=== PATIENT | female | born 1955 | race Caucasian/White ===

== ENCOUNTER → 2021-10-10 08:17 | Outpatient (BNVA) | payer OTHER, SELFPAY | PROVIDERS: PCP Internal Medicine; Visit Provider Psychiatry & Neurology Neurology | DX: R56.9 Unspecified convulsions (principal) | CPT/HCPCS: 99202 ==

== ENCOUNTER 2021-11-06 12:47 | Outpatient (REF) | payer OTHER, SELFPAY ==
--- NOTE | 2021-11-06 12:54 | EEG_ITS ---
This is a 16-channel EEG with an EKG lead. The patient is reported awake during the tracing. Background EEG rhythm is about 10 hertz, 5 to 30 microvolt posteriorly, and lower amplitude fast anteriorly. The patient transitioned in and out of drowsiness. Some lead and muscle artifacts are noted. Photic stimulation does not produce any significant driving. Hyperventilation is not performed. Cardiac lead does not reveal any significant abnormality. No sharp wave spikes or paroxysmal tendencies noted. IMPRESSION: No significant abnormality noted on this EEG. MD TANGELA Reynolds/CHRISSIE / [id number]
== END 2021-11-06 12:48 | disposition home or self-care (01) ==
LOC: HO.NEURO 12:47
PROVIDERS: PCP Internal Medicine; Visit Provider Psychiatry & Neurology Neurology
DX: R56.9 Unspecified convulsions (principal)
CPT/HCPCS: 95816

== ENCOUNTER → 2021-12-17 13:48 | Outpatient (BNVA) | payer OTHER, SELFPAY | PROVIDERS: PCP Internal Medicine; Visit Provider Psychiatry & Neurology Neurology | DX: R56.9 Unspecified convulsions (principal); G47.33 Obstructive sleep apnea (adult) (pediatric) | CPT/HCPCS: 99212 ==

== ENCOUNTER → 2022-03-18 14:23 | Outpatient (BNVA) | payer OTHER, SELFPAY | PROVIDERS: PCP Internal Medicine; Visit Provider Psychiatry & Neurology Neurology | DX: G47.33 Obstructive sleep apnea (adult) (pediatric) (principal); R56.9 Unspecified convulsions; G25.81 Restless legs syndrome | CPT/HCPCS: 99212 ==

== ENCOUNTER 2023-03-17 14:22 | Outpatient (AMB) | payer OTHER, SELFPAY ==
[2023-03-17 14:34] VITALS: BP 136/72; PULSE 114; O2SAT 95; BMI 37.5
--- NOTE | 2023-03-17 14:34 | A.OFFVIS_ITS ---
Intake Vital Signs 03/17/23 14:34 Height 5 ft 6 in Weight 232 lb 8 oz BMI 37.5 BP 136/72 Blood Pressure Location Lt brachial Position Sitting Pulse 114 H Pulse Source Pulse Oximeter Pulse Oximetry (%) 95 Oxygen Delivery Method Room Air Intake Visit Reasons: 1yr f/u/Lvm Intake Note: Pt presents to the office today for a 1 year follow up for sleep apnea. Allergies amoxicillin Allergy (Verified 03/17/23 14:34) Unknown clavulanic acid Allergy (Verified 03/17/23 14:34) Unknown doxycycline Allergy (Verified 03/17/23 14:34) Unknown minocycline Allergy (Verified 03/17/23 14:34) Rash HPI HPI Comments History of Present Illness Details 67 y/o male patient presents for follow up of seizure and AZUCENA. Pt reports he has not have any seizure since 2017. In 2017 he had multiple seizures ( GTC) related to high blood glucose >500 and HgA 1C over 11. He is on insulin pump now, and does daily exercise, and his BS manages well. Pt is compliant with CPAP, sleeps well about 6 hrs. He feels rested, daytime tiredness has resolved. He gets supplies regularly. Magnesium 250 mg once a day, and it helps for legs muscle cramping. The CPAP compliance and therapy response (12/19/22-03/16/23) reviewed. He is on APAP [id number]. The usage days 88% and the average usage hours 5 hrs. The max pressure was 8 and AHI was 0.9/hr. [facility] Medical History Restless legs syndrome (RLS) Obstructive sleep apnea of adult Seizure Emphysema lung Hyperlipidemia HTN (hypertension) Diabetes Surgical History History of esophagogastroduodenoscopy (EGD) S/P repair of hydrocele History of hernia repair Hx of colonoscopy Family History Mother Tobacco use Father CAD (coronary artery disease) FH: CVA (cerebrovascular accident) Stroke Sister DM (diabetes mellitus) Daughter DM (diabetes mellitus) Social History Household Members: Spouse Household Members Other:: Alcohol intake: current Alcohol intake frequency: a few times a week Patient Tobacco Use Status: Former Tobacco user Review of Systems Const All systems reviewed & are unremarkable except as noted in HPI and below Physical Exam Vital Signs: Last Vital Signs Pulse 114 H 03/17/23 14:34 BP 136/72 03/17/23 14:34 Pulse Ox 95 03/17/23 14:34 Oxygen Delivery Method Room Air 03/17/23 14:34 BMI result Body Mass Index 37.5 Const General: cooperative, healthy appearing and comfortable Nutritional Appearance: average body habitus Orientation/consciousness: patient oriented x3 Limitations: no limitations HEENT Head: Yes normal to inspection and Yes normocephalic Eyes Pupils: Equal, round and reactive pupils present Neck Neck: Yes normal visual inspection and Yes full ROM Neuro General: patient oriented x3, gait normal, tone normal, moves all extremities, Normal light touch and pain sensation, no focal motor deficits and CN's II-XI intact bilaterally Cranial nerves: Yes CN's II-XII intact bilaterally, Yes Facial sensation intact/muscles of mastication intact, Yes Equal, round and reactive pupils present, Yes Bilaterally intact EOM present, Yes Nystagmus not present, Yes Normal facial strength present and Yes Midline tongue present Cognition (Neuro): normal cognition Gait exam (Neuro): Normal gait present Motor exam (neuro): 5/5 motor strength present throughout Assessment & Plan Assessment & Plan (1) Seizure: Comment: likely metabolic - Code(s): R56.9 - Unspecified convulsions (2) Obstructive sleep apnea of adult: Code(s): G47.33 - Obstructive sleep apnea (adult) (pediatric) (3) Restless legs syndrome (RLS): Code(s): G25.81 - Restless legs syndrome Plan Continue CPAP 6-16 cm of water as patient experiences good clinical effects. Continue to take magnesium 400 mg qHS for leg cramping. Coding Level of Care Code Est Pt Level 3 (63025) Diagnoses Seizure R56.9 Obstructive sleep apnea of adult G47.33 Restless legs syndrome (RLS) G25.81
== END 2023-03-17 14:57 | disposition home or self-care (01) ==
PROVIDERS: Visit Provider Nurse Practitioner Family
DX: R56.9 Unspecified convulsions (principal); G47.33 Obstructive sleep apnea (adult) (pediatric); G25.81 Restless legs syndrome
CPT/HCPCS: 99213

== ENCOUNTER → 2023-03-17 14:22 | Outpatient (BNVA) | payer OTHER, SELFPAY | PROVIDERS: Visit Provider Nurse Practitioner Family ==

== ENCOUNTER 2024-03-16 13:54 | Outpatient (AMB) | payer OTHER, SELFPAY ==
--- NOTE | 2024-03-16 13:58 | A.OFFVIS_ITS ---
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 he reports a new symptom - mild rest tremors intermittently in his right fingers. Mild postural tremors. Pt reports he has not have any seizure since 2017. In 2017 he had multiple seizures ( GTC) related to high blood glucose >500 and HgA 1C over 11. He is on insulin pump now, and does daily exercise, and his BS manages well. Pt is compliant with CPAP, sleeps well about 6 hrs. He feels rested, daytime tiredness has resolved. He gets supplies regularly. Magnesium 250 mg once a day, and it helps for legs muscle cramping. [facility] Medical History (Updated 03/16/24 @ 14:16 by Sabine Santos MD) Tremors of nervous system Restless legs syndrome (RLS) Obstructive sleep apnea of adult Seizure Emphysema lung Hyperlipidemia HTN (hypertension) Diabetes Surgical History History of esophagogastroduodenoscopy (EGD) S/P repair of hydrocele History of hernia repair Hx of colonoscopy Family History Mother Tobacco use Father CAD (coronary artery disease) FH: CVA (cerebrovascular accident) Stroke Sister DM (diabetes mellitus) Daughter DM (diabetes mellitus) Social History Household Members: Spouse Household Members Other:: Alcohol intake: current Alcohol intake frequency: a few times a week Patient Tobacco Use Status: Former Tobacco user Physical Exam Vital Signs: Last Vital Signs Pulse 92 03/16/24 13:59 BP 128/76 11/27/24 13:59 Pulse Ox 95 03/16/24 13:59 Oxygen Delivery Method Room Air 03/16/24 13:59 BMI result Body Mass Index 40.4 Const General: cooperative, healthy appearing and comfortable Nutritional Appearance: average body habitus Orientation/consciousness: patient oriented x3 Limitations: no limitations HEENT Head: Yes normal to inspection and Yes normocephalic Eyes Pupils: Equal, round and reactive pupils present Neck Neck: Yes normal visual inspection and Yes full ROM Neuro Other: Mild decreased arm swing on the Right normal voice, facial expression and blink General: patient oriented x3, gait normal, tone normal, moves all extremities, Normal light touch and pain sensation, no focal motor deficits and CN's II-XI intact bilaterally Cranial nerves: Yes CN's II-XII intact bilaterally, Yes Facial sensation intact/muscles of mastication intact, Yes Equal, round and reactive pupils present, Yes Bilaterally intact EOM present, Yes Nystagmus not present, Yes Normal facial strength present and Yes Midline tongue present Cognition (Neuro): normal cognition Gait exam (Neuro): Normal gait present Motor exam (neuro): 5/5 motor strength present throughout Assessment & Plan Assessment & Plan (1) Seizure: Comment: likely metabolic - Code(s): R56.9 - Unspecified convulsions Category: Medical (2) Obstructive sleep apnea of adult: Code(s): G47.33 - Obstructive sleep apnea (adult) (pediatric) Category: Medical (3) Restless legs syndrome (RLS): Code(s): G25.81 - Restless legs syndrome Category: Medical (4) Tremors of nervous system: Comment: intremittent mild Right Hand rest tremors. Code(s): R25.1 - Tremor, unspecified Category: Medical Plan Continue CPAP 6-16 cm of water as patient experiences good clinical effects. Continue to take magnesium 400 mg qHS for leg cramping. Coding Level of Care Code Est Pt Level 4 (38107) Complex EM visit Add On G2211 Diagnoses Seizure R56.9 Obstructive sleep apnea of adult G47.33 Restless legs syndrome (RLS) G25.81 Tremors of nervous system R25.1
[2024-03-16 13:59] VITALS: BP 128/76; PULSE 92; O2SAT 95; BMI 40.4
== END 2024-03-16 14:19 | disposition home or self-care (01) ==
PROVIDERS: PCP Internal Medicine; Visit Provider Psychiatry & Neurology Neurology
DX: R56.9 Unspecified convulsions (principal); G47.33 Obstructive sleep apnea (adult) (pediatric); G25.81 Restless legs syndrome
CPT/HCPCS: 99214; G2211

== ENCOUNTER → 2024-03-16 13:54 | Outpatient (BNVA) | payer OTHER, SELFPAY | PROVIDERS: PCP Internal Medicine; Visit Provider Psychiatry & Neurology Neurology ==

== ENCOUNTER 2024-09-30 12:51 | Outpatient (AMB) | payer OTHER, SELFPAY ==
--- OUTSIDE RECORDS SUMMARY | 2024-09-30 13:16 | XMS_ITS | Encounter Summary ---
Author Organization [facility] Address [address] [place] [address] Care Team Providers Care Hair Dresser Name Role Phone Claudy Collins MD Primary Care Provider [phone] Encounter Details Date Type Department Care Team (Late st Contact Info) Description 03/30/2024 Nurse Triage Adult Medicine [address] [phone] Claudy Collins MD [address] [place] [id number] Social History Tobacco Use Types Packs/Day Years Used Date Smoking Tobacco: Former Cigarettes Q uit: 04/20/2019 Smokeless Tobacco: Never Alcohol Use Standard Drinks/Week Comments Yes 0 (1 standard drink = 0.6 oz pur e alcohol) Sex and Gender Information Value Date Recorded Sex Assigned at Not on file Legal Sex Male 12:41 PM EDT Gender Identity Not on file Sexual Orientation Not on file documented as of this encounter Plan of Treatment Upcoming Encounters Date Type Department Care Team (Late st Contact Info) Description 10/03/2024 4:00 PM EDT Office Visit [place]gy [place] [address] [facility] [address] [place] [phone] Kena Caballero NP [address] [facility] [address] [place] [address] 10/25/2024 3:30 PM EDT Clinical Support Lung Screening Program - [place] [address] [facility] [address] [place] [address] 10/25/2024 4:00 PM EDT Appointment [facility] CT Scan [address] [place] [phone] 11/03/2024 4:30 PM EDT Office Visit Endocrinology [facility] [place] [address] [place] [address] Shelli Oleary PA [address] [place] [address] 12/27/2024 2:30 PM EDT Consult Bariatric Surgery [facility] [address] [facility] [address] [place] [phone] Joaquin Escoto MD [address] [facility] [address] [place] [address] 03/10/2025 3:00 PM EST Office Visit [facility] [place] [facility] [place] [address] [place] [address] Claudy Collins MD [address] [place] [phone] documented as of this encounter Visit Diagnoses Not on filedocumented in this encounter Additional Health Concerns Assessment Noted Time PHQ-9 Depression Total Score: 0 02/29/20 2:14 PM EST documented as of this encounter Care Teams Hair Dresser Relationship Specialty Start Date End Date Claudy Collins MD [address] [place] [id number] PCP - General Internal Medicine 03/07/24 documented as of this encounter
[2024-09-30 13:24] VITALS: BP 118/70; PULSE 76; O2SAT 92; BMI 41.9
--- NOTE | 2024-09-30 13:24 | MHC.OFFVIS ---
Vital Signs 09/30/24 13:24 Height 5 ft 6 in Weight 259 lb 8 oz BMI 41.9 BP 118/70 Blood Pressure Location Rt brachial Position Sitting Pulse 76 Pulse Source Pulse Oximeter Pulse Oximetry (%) 92 Oxygen Delivery Method Room Air Intake Visit Reasons: 6m f/u RESCHED Intake Note: Patient presents for follow up. compliance report scanned 09/12/24 Allergies amoxicillin Allergy (Verified 09/30/24 13:27) Unknown clavulanic acid Allergy (Verified 09/30/24 13:27) Unknown doxycycline Allergy (Verified 09/30/24 13:27) Unknown minocycline Allergy (Verified 09/30/24 13:) Rash HPI Comments Details: 69 y/o male patient presents for follow up of seizure and AZUCENA. His tremor sin his right fingers have decreased significantly Pt reports he has not have any seizure since 2017. In 2017 he had multiple seizures ( GTC) related to high blood glucose >500 and HgA 1C over 11. He is on insulin pump now, and does daily exercise, and his BS manages well. Pt is compliant with CPAP, sleeps well about 6 hrs. Compliance in the past 90 days - 100 % Usgae hrs 5-6hrs AHI 1 He feels rested, daytime tiredness has resolved. He gets supplies regularly. Magnesium 250 mg once a day, and it helps for legs muscle cramping. [facility] Medical History Allergic rhinitis Tremors of nervous system Restless legs syndrome (RLS) Obstructive sleep apnea of adult Seizure Emphysema lung Hyperlipidemia HTN (hypertension) Diabetes Surgical History History of esophagogastroduodenoscopy (EGD) S/P repair of hydrocele History of hernia repair Hx of colonoscopy Family History Mother Tobacco use Father CAD (coronary artery disease) FH: CVA (cerebrovascular accident) Stroke Sister DM (diabetes mellitus) Daughter DM (diabetes mellitus) Social History Household Members: Spouse Household Members Other:: Alcohol intake: current Alcohol intake frequency: a few times a week Patient Tobacco Use Status: Former Tobacco user Physical Exam Vital Signs: Last Vital Signs Pulse 76 06/13/25 13:24 BP 118/70 09/30/24 13:24 Pulse Ox 92 09/30/24 13:24 Oxygen Delivery Method Room Air 09/30/24 13:24 BMI result Body Mass Index 41.9 Const General: cooperative, healthy appearing and comfortable Nutritional Appearance: average body habitus Orientation/consciousness: patient oriented x3 Limitations: no limitations HEENT Head: Yes normal to inspection and Yes normocephalic Eyes Pupils: Equal, round and reactive pupils present Neck Neck: Yes normal visual inspection and Yes full ROM Neuro Other: Moderate decreased arm swing on the Right normal voice, facial expression and blink No tremors General: patient oriented x3, gait normal, tone normal, moves all extremities, Normal light touch and pain sensation, no focal motor deficits and CN's II-XI intact bilaterally Cranial nerves: Yes CN's II-XII intact bilaterally, Yes Facial sensation intact/muscles of mastication intact, Yes Equal, round and reactive pupils present, Yes Bilaterally intact EOM present, Yes Nystagmus not present, Yes Normal facial strength present and Yes Midline tongue present Cognition (Neuro): normal cognition Gait exam (Neuro): Normal gait present Motor exam (neuro): 5/5 motor strength present throughout Assessment & Plan Assessment & Plan (1) Seizure: Comment: likely metabolic - Code(s): R56.9 - Unspecified convulsions Category: Medical (2) Obstructive sleep apnea of adult: Code(s): G47.33 - Obstructive sleep apnea (adult) (pediatric) Category: Medical (3) Restless legs syndrome (RLS): Code(s): G25.81 - Restless legs syndrome Category: Medical (4) Tremors of nervous system: Comment: intremittent mild Right Hand rest tremors. Code(s): R25.1 - Tremor, unspecified Category: Medical Plan Continue CPAP 6-16 cm of water as patient experiences good clinical effects. Continue to take magnesium 400 mg qHS for leg cramping. Coding Level of Care Code Est Pt Level 4 (04875) Complex EM visit Add On G2211 Diagnoses Seizure R56.9 Obstructive sleep apnea of adult G47.33 Restless legs syndrome (RLS) G25.81 Tremors of nervous system R25.1
== END 2024-09-30 13:45 | disposition home or self-care (01) ==
LOC: HO.HSMS 12:52
PROVIDERS: PCP Internal Medicine; Visit Provider Psychiatry & Neurology Neurology
DX: R56.9 Unspecified convulsions (principal); G47.33 Obstructive sleep apnea (adult) (pediatric); G25.81 Restless legs syndrome
CPT/HCPCS: 99214; G2211

== ENCOUNTER → 2024-09-30 12:51 | Outpatient (BNVA) | payer OTHER, SELFPAY | PROVIDERS: PCP Internal Medicine; Visit Provider Psychiatry & Neurology Neurology | DX: R56.9 Unspecified convulsions (principal); G47.33 Obstructive sleep apnea (adult) (pediatric); G25.81 Restless legs syndrome; R25.1 Tremor, unspecified ==

== ENCOUNTER 2025-04-03 14:17 | Outpatient (AMB) | payer OTHER, SELFPAY ==
--- OUTSIDE RECORDS SUMMARY | 2025-03-29 09:45 | XMS_ITS ---
Author Organization [facility] Address [address] [facility] [address] [place] [address] Care Team Providers Care School Operations Manager Name Role Phone DennisClaudy Primary Care Provider JUNIOR Quintero [phone] Allergies Allergen (clinical drug ingredient) Drug/Non Drug Allergy documented on EMR Reaction Allergy Type Onset Date Status amoxicillin / clavulanate Augmentin hives Drug Allergy Active REASON FOR VISIT 1yr Medications Medication SIG (Take, Route, Frequency, Duration) Notes Start Date End Date Status Colchicine 0.6 MG 1 tablet Orally Active Otezla 30 MG 1 tablet Orally Twice a day Active Omeprazole 20 MG 1 capsule 30 minutes before morning meal Orally Once a day Active Aspir-81 81 mg daily Active Pravastatin Sodium 40 MG 1 tablet Orally Once a day Active Keppra 250 MG 2 tablets Orally Twice a day Not-Taking Ciclopirox 0.77 % 1 application Externally daily; Duration: 30 days 03/29/2025 Active Erythromycin 2 % 1 application Externally Twice a day; Duration: 90 days prn Active Clotrimazole-Betameth asone 1-0.05 % 1 application Externally Twice a day; Duration: 90 days Active Atorvastatin Calcium 80 MG 1 tablet Orally Once a day Not-Taking Lantus SoloStar 100 UNIT/ML as directed Subcutaneous 36 units in the morning Not-Taking Efinaconazole 10 % 1 application Externally Once a day; Duration: 30 days prn Active Humalog Pen slide scale Active Problems Problem Type SNOMED Code ICD Code Onset Dates Problem Status W/U Status Risk Notes Problem Plantar fascial fibromatosis (14441681) Plantar fasciitis, left (M72.2) Active confirmed Encounters Encounter Location Date Provider Diagnosis [facility] [address] [facility] [address] [place] [address] 03/29/2025 JUNIOR CONRAD Tinea pedis of right foot B35.3 ; Plantar fasciitis, left M72.2 ; Venous (peripheral) insufficiency I87.2 and Type 2 diabetes mellitus with diabetic polyneuropathy, without long-term current use of insulin E11.42 Assessments Encounter Date Diagnosis (ICD Code) Assessment Notes Treatment Notes Treatment Clinical Notes Section Notes 03/29/2025 Tinea pedis of right foot (ICD-10 - B35.3) He has recurrent tinea pedis that has occurred on both feet. 2 Flare ups this year. Patient has ciclopirox and erythromycin cream to apply between toes daily until resolved. If he develops a recurrence we discussed he may need to go on oral antifungals. He uses the lotrisone as needed. RX refilled today. 03/29/2025 Plantar fasciitis, left (ICD-10 - M72.2) This is an outpatient visit for evaluation and management of an existing patient, which required appropriate review of pertinent medical history, review of any previous imaging, review of all previous records, and examination and decision-making. Time was 30 minutes spent in review of all these facets including face to face discussion with the patient regarding my findings and in discussion of a current and future treatment plan. Discussed the pathology of plantar fasciitis, what that means and how it affects the patient's ADL. Reviewed and demonstrated the stretching and icing exercises with the patient, handout dispensed, and patient instructed to perform twice daily. Recommended starting a course of NSAIDs with the patient, patient to try diclofenac gel twice daily to the heel. He will call my office if this is not helping and he wants a steroid injection. Discussed proper shoe gear with the patient and recommended over the counter inserts. I recommended he avoid any barefoot walking. Patient to return sooner if no improvement. 03/29/2025 Venous (peripheral) insufficiency (ICD-10 - I87.2) He completed all EVLT treatments with Dr. Worley. No further treatment is needed at this time. 03/29/2025 Type 2 diabetes mellitus with diabetic polyneuropathy, without long-term current use of insulin (ICD-10 - E11.42) Discussed with patient regarding proper glucose control, exercise, and diet. Explained to patient proper shoe gear, and importance of daily foot checks. I reviewed neuropathy and why it occurs in diabetics. I educated the patient on proper blood sugar control and the importance of an HgBA1c of less than 7.0%. I reviewed the signs and symptoms of neuropathy with the patient. Plan Of Treatment Medication Medication Name Sig Start Date Stop Date Notes Ciclopirox 0.77 % 1 application Stand Grinder ally daily; Duration: 30 days 03/29/2025 Erythromycin 2 % 1 application Stand Grinder ally Twice a day; Duration: 90 days prn Clotrimazole-Betamethasone 1-0.05 % 1 application Externally Twice a day; Duration: 90 days Treatment Notes Assessment Notes Plantar fasciitis, left This is an outpatient visit for evaluation and management of an existing patient, which required appropriate review of pertinent medical history, review of any previous imaging, review of all previous records, and examination and decision-making. Time was 30 minutes spent in review of all these facets including face to face discussion with the patient regarding my findings and in discussion of a current and future treatment plan. Discussed the pathology of plantar fasciitis, what that means and how it affects the patient's ADL. Reviewed and demonstrated the stretching and icing exercises with the patient, handout dispensed, and patient instructed to perform twice daily. Recommended starting a course of NSAIDs with the patient, patient to try diclofenac gel twice daily to the heel. He will call my office if this is not helping and he wants a steroid injection. Discussed proper shoe gear with the patient and recommended over the counter inserts. I recommended he avoid any barefoot walking. Patient to return sooner if no improvement. Next Appt Details Follow Up: 1 Year, Reason: Provider Name:JUNIOR CONRAD, 03/30/2026 01:00:00 PM, [address], [address], Progress Notes * Brett NOBLEDOB:1955 (69 yo M)Acc No.[id number]:03/29/2025 Progress Note Patient: Brett VENTURA Provider: Tracy Conrad DPM :1955 A ge:69 Y S ex:Male Date:03/29/2025 Address:[address] [place] [address] [facility] Pcp:Claudy Collins Subjective: * Chief Complaints: * 1 yr * HPI: C onstitutional: This 69 y/o male returns to my office for a diabetic foot evaluation. He states the cramping in the feet and legs is definitely improved. He still gets occasional cramping at night. His cramping has improved with magnesium supplements. He states there has been one or two tinea pedis flares in the last year, but they resolved easily with the medication. He does have a new complaint this visit of left heel pain for the last few months. He states it feels like walking on a bruise. He denies any injury or trauma to the foot. He has tried changing his shoes without improvement. He states it seems to be worse after working when he is on the concrete floors. His last hgba1c was 8.2. His last visit with his PCP care team Dr Collins for diabetes management was 02/01/2025. He has no other foot complaints this visit. * ROS: G ENERAL: Pt denies nausea, fever, vomiting, chills, or shortness of breath. Pt in NAD. ALLERGY: patient denies any new allergy HEME/ONC: patient denies any bleeding or clotting disorders CARDIOLOGY: pt denies chest pain, palpitations LUNGS: pt denies shortness of breath ABDOMEN: patient denies any bloating, abdominal pain, or swelling MUSCULOSKELETAL: See HPI, otherwise no joint pain or swelling, back pain, or muscle pain. SKIN: see HPI, otherwise no lesions, rash or itching NEURO: No persistent headache, weakness or numbness PSYCH: patient denies any current anxiety or depression The remainder of the review of systems is noncontributory. * Medical History: * Surgical History: c olonoscopy hernia repair * Hospitalization/Major Diagno stic Procedure: N o Hospitalization History. * Family History: N o Family History documented.. * Social History: f ormer smoker, quit 04/20/2019 Alcohol: yes, 1 ounce of wine a week. * Medications: T akingColchicine 0.6 MG Tablet 1 tablet Orally Pravastatin Sodium 40 MG Tablet 1 tablet Orally Once a day Aspir-81 , Notes to Pharmacist: 81 mg dailyOmeprazole 20 MG Capsule Delayed Release 1 capsule 30 minutes before morning meal Orally Once a day Otezla 30 MG Tablet 1 tablet Orally Twice a day Humalog Pen , Notes to Pharmacist: slide scaleEfinaconazole 10 % Solution 1 application Externally Once a day , Notes to Pharmacist: prnClotrimazole-Betamethasone 1-0.05 % Cream 1 application Externally Twice a day Erythromycin 2 % Gel 1 application Externally Twice a day , Notes to Pharmacist: prnTaking Colchicine 0.6 MG Tablet 1 tablet Orally Taking Pravastatin Sodium 40 MG Tablet 1 tablet Orally Once a day Taking Aspir-81 , Notes to Pharmacist: 81 mg dailyTaking Omeprazole 20 MG Capsule Delayed Release 1 capsule 30 minutes before morning meal Orally Once a day Taking Otezla 30 MG Tablet 1 tablet Orally Twice a day Taking Humalog Pen , Notes to Pharmacist: slide scaleTaking Efinaconazole 10 % Solution 1 application Externally Once a day , Notes to Pharmacist: prnTaking Clotrimazole-Betamethasone 1-0.05 % Cream 1 application Externally Twice a day Taking Erythromycin 2 % Gel 1 application Externally Twice a day , Notes to Pharmacist: prnNot-TakingLantus SoloStar 100 UNIT/ML Solution Pen-injector as directed Subcutaneous , Notes to Pharmacist: 36 units in the morningAtorvastatin Calcium 80 MG Tablet 1 tablet Orally Once a day Keppra 250 MG Tablet 2 tablets Orally Twice a day Not-Taking Lantus SoloStar 100 UNIT/ML Solution Pen-injector as directed Subcutaneous , Notes to Pharmacist: 36 units in the morningNot-Taking Atorvastatin Calcium 80 MG Tablet 1 tablet Orally Once a day Not-Taking Keppra 250 MG Tablet 2 tablets Orally Twice a day * Allergies: A ugmentin: ayesha[Allergies Verified] Objective: * Vitals: * Examination: G eneral Examination: G ENERAL: AAO x 3 in NAD VASCULAR: Dorsalis pedis pulses are 2/4 bilaterally and Posterior tibial pulses are 2/4 bilaterally. Capillary filling time within normal limits the digits. No pallor on elevation or rubor on dependency. No hair growth. Large varicosities of the upper legs with pain on palpation and swelling. Varicose veins of the lower legs and ankles with slight edema. Complains of pain in the legs at night. NEUROLOGICAL: Sharp/dull sensation intact, protective sensation intact 10/10 with [place] donn bilaterally, vibratory sensation with tuning fork diminished to the tibial tuberosity. ORTHOPEDIC: Good muscle strength 4+/5 of all flexors and extensors. Dorsi flexion of ankle ,10 degrees, plantar flexion WNL. No muscle atrophy. Tenderness on compression of the left heel, pain on palpation of the left plantar heel, tenderness on activation of the windlass mechanism. DERMATOLOGICAL:0.5cm, 0.3cm, 0.2cm soft tissue mass, non-mobile on the plantar medial surface of the left foot, no pain on palpation. BIOMECHANICS: STJ ROM WNL, MTJ ROM limited, 1st MPJ ROM limited. On weight bearing, hammering of toes 2,3,4,5 bilaterally. SHOES:sneakers. Assessment: * Assessment: 1. P lantar fasciitis, left - M72.2 (Primary) 2 . T inea pedis of right foot - B35.3 3 . V enous (peripheral) insufficiency - I87.2 4 .?Type 2 diabetes mellitus with diabetic polyneuropathy, without long-term current use of insulin - E11.42 Plan: * Treatment: 2. T inea pedis of right foot Start Clotrimazole-Betamethasone Cream, 1-0.05 %, 1 application, Externally, Twice a day, 90 days, 60, Refills 2; R efill Erythromycin Gel, 2 %, 1 application, Externally, Twice a day, 90 days, 30, Refills 0, Notes to Pharmacist: prn; S tart Ciclopirox Gel, 0.77 %, 1 application, Externally, daily, 30 days, 30 Gram, Refills 2. Clinical Notes: He has recurrent tinea pedis that has occurred on both feet. 2 Flare ups this year. Patient has ciclopirox and erythromycin cream to apply between toes daily until resolved. If he develops a recurrence we discussed he may need to go on oral antifungals. He uses the lotrisone as needed. RX refilled today. 3. V enous (peripheral) insufficiency Clinical Notes: He completed all EVLT treatments with Dr. Worley. No further treatment is needed at this time. 4. T ype 2 diabetes mellitus with diabetic polyneuropathy, without long-term current use of insulin Clinical Notes: Discussed with patient regarding proper glucose control, exercise, and diet. Explained to patient proper shoe gear, and importance of daily foot checks. I reviewed neuropathy and why it occurs in diabetics. I educated the patient on proper blood sugar control and the importance of an HgBA1c of less than 7.0%. I reviewed the signs and symptoms of neuropathy with the patient. ? * Procedure Codes: * Follow Up: 1 Year * Billing Information: * Visit Code: 60914 Office Visit, Est Pt., Level 4. * Procedure Codes: * Sign off status: Completed true * Provider: Tracy Conrad, DPM Date: 05/30/2024 Generated for Tika godwin/Angela/Dolores on: 2024 08:42 PM EST History and Physical Notes * HPI (History of Present Illness) Category Sub-Category Detail Notes Category Not es Constitutional This 69 y/o m jena returns to my office for a diabetic foot evaluation. He states the cramping in the feet and legs is definitely improved. He still gets occasional cramping at night. His cramping has improved with magnesium supplements. He states there has been one or two tinea pedis flares in the last year, but they resolved easily with the medication. He does have a new complaint this visit of left heel pain for the last few months. He states it feels like walking on a bruise. He denies any injury or trauma to the foot. He has tried changing his shoes without improvement. He states it seems to be worse after working when he is on the concrete floors. His last hgba1c was 8.2. His last visit with his PCP care team Dr Collins for diabetes management was 02/01/2025. He has no other foot complaints this visit. Examination Category Sub-Category Detail Notes Category Not es General Examination GENERAL: AAO x 3 in NAD VASCULAR: Dorsalis pedis pulses are 2/4 bilaterally and Posterior tibial pulses are 2/4 bilaterally. Capillary filling time within normal limits the digits. No pallor on elevation or rubor on dependency. No hair growth. Large varicosities of the upper legs with pain on palpation and swelling. Varicose veins of the lower legs and ankles with slight edema. Complains of pain in the legs at night. NEUROLOGICAL: Sharp/dull sensation intact, protective sensation intact 10/10 with [place] donn bilaterally, vibratory sensation with tuning fork diminished to the tibial tuberosity. ORTHOPEDIC: Good muscle strength 4+/5 of all flexors and extensors. Dorsi flexion of ankle ,10 degrees, plantar flexion WNL. No muscle atrophy. Tenderness on compression of the left heel, pain on palpation of the left plantar heel, tenderness on activation of the windlass mechanism. DERMATOLOGICAL:0.5cm, 0.3cm, 0.2cm soft tissue mass, non-mobile on the plantar medial surface of the left foot, no pain on palpation. BIOMECHANICS: STJ ROM WNL, MTJ ROM limited, 1st MPJ ROM limited. On weight bearing, hammering of toes 2,3,4,5 bilaterally. SHOES:sneakers
--- NOTE | 2025-04-03 14:20 | MHC.OFFVIS ---
Vital Signs 04/03/25 14:21 Height 5 ft 6 in Weight 266 lb 2 oz BMI 42.9 BP 140/80 H Blood Pressure Location Rt brachial Position Sitting Pulse 96 Pulse Source Pulse Oximeter Pulse Oximetry (%) 96 Oxygen Delivery Method Room Air Intake Visit Reasons: 6m follow up Intake Note: Follow up Tremors of nervous system, Seizures, RLS and AZUCENA Student Services Director Required: No Accompanied by: Self / Same As Patient Allergies amoxicillin Allergy (Verified 04/03/25 14:21) Unknown clavulanic acid Allergy (Verified 04/03/25 14:21) Unknown doxycycline Allergy (Verified 04/03/25 14:21) Unknown minocycline Allergy (Verified 04/03/25 14:21) Rash HPI Comments Details: 69 y/o male patient presents for follow up of seizure and AZUCENA. His tremors in his right fingers have decreased significantly Pt reports he has not have any seizure since 2017. In 2017 he had multiple seizures ( GTC) related to high blood glucose >500 and HgA 1C over 11. He is on insulin pump now, and does daily exercise, and his BS manages well. Pt is compliant with CPAP, sleeps well about 6 hrs. Compliance in the past 90 days - 99 % Usgae hrs 5-6hrs AHI 1 He feels rested, daytime tiredness has resolved. He gets supplies regularly. Magnesium 250 mg once a day, and it helps for legs muscle cramping. [facility] Medical History Allergic rhinitis Tremors of nervous system Restless legs syndrome (RLS) Obstructive sleep apnea of adult Seizure Emphysema lung Hyperlipidemia HTN (hypertension) Diabetes Surgical History History of esophagogastroduodenoscopy (EGD) S/P repair of hydrocele History of hernia repair Hx of colonoscopy Family History Mother Tobacco use Father CAD (coronary artery disease) FH: CVA (cerebrovascular accident) Stroke Sister DM (diabetes mellitus) Daughter DM (diabetes mellitus) Social History Household Members: Spouse Household Members Other:: Alcohol intake: current Alcohol intake frequency: a few times a week Patient Tobacco Use Status: Former Tobacco user Physical Exam Vital Signs: Last Vital Signs Pulse 96 04/03/25 14:21 BP 140/80 H 04/03/25 14:21 Pulse Ox 96 04/03/25 14:21 Oxygen Delivery Method Room Air 04/03/25 14:21 BMI result Body Mass Index 42.9 Const General: cooperative, healthy appearing and comfortable Nutritional Appearance: average body habitus Orientation/consciousness: patient oriented x3 Limitations: no limitations HEENT Head: Yes normal to inspection and Yes normocephalic Eyes Pupils: Equal, round and reactive pupils present Neck Neck: Yes normal visual inspection and Yes full ROM Neuro Other: Moderate decreased arm swing on the Right normal voice, facial expression and blink No tremors General: patient oriented x3, gait normal, tone normal, moves all extremities, Normal light touch and pain sensation, no focal motor deficits and CN's II-XI intact bilaterally Cranial nerves: Yes CN's II-XII intact bilaterally, Yes Facial sensation intact/muscles of mastication intact, Yes Equal, round and reactive pupils present, Yes Bilaterally intact EOM present, Yes Nystagmus not present, Yes Normal facial strength present and Yes Midline tongue present Cognition (Neuro): normal cognition Gait exam (Neuro): Normal gait present Motor exam (neuro): 5/5 motor strength present throughout Assessment & Plan Assessment & Plan (1) Seizure: Comment: likely metabolic - Code(s): R56.9 - Unspecified convulsions Category: Medical (2) Obstructive sleep apnea of adult: Code(s): G47.33 - Obstructive sleep apnea (adult) (pediatric) Category: Medical (3) Restless legs syndrome (RLS): Code(s): G25.81 - Restless legs syndrome Category: Medical (4) Tremors of nervous system: Comment: intremittent mild Right Hand rest tremors. Code(s): R25.1 - Tremor, unspecified Category: Medical Plan Continue CPAP 6-16 cm of water as patient experiences good clinical effects. Continue to take magnesium 400 mg qHS for leg cramping. Coding Level of Care Code Est Pt Level 4 (32547) Add On Problem Visit Only Diagnoses Seizure R56.9 Obstructive sleep apnea of adult G47.33 Restless legs syndrome (RLS) G25.81 Tremors of nervous system R25.1
[2025-04-03 14:21] VITALS: BP 140/80; PULSE 96; O2SAT 96; BMI 42.9
--- OUTSIDE RECORDS SUMMARY | 2025-04-03 20:42 | XMS_ITS | Patient Health Record ---
Author Organization [facility] Address [address] [facility] [address] [place] [address] Care Team Providers Care Mold Carpenter Name Role Phone Claudy Collins Primary Care Provider JUNIOR Quintero Unavailable [phone] Allergies Allergen (clinical drug ingredient) Drug/Non Drug Allergy documented on EMR Reaction Allergy Type Onset Date Status amoxicillin / clavulanate Augmentin hives Drug Allergy Active Reason For Referral Reason diabetic check Diagnosis 1 Type 1 diabetes isabel itus with unspecified complications (E10.8) Referring Provider First Name Claudy Referring Provider Last Name Dennis Referred Organization [facility] Referred Provider JUNIOR HARPER Referred Address [address] [facility] [address],[place], [place],[address], Referred Provider Specialty Podiatry Referral Priority Routine Medications Medication SIG (Take, Route, Frequency, Duration) Notes Start Date End Date Status Colchicine 0.6 MG 1 tablet Orally Active Keppra 250 MG 2 tablets Orally Twice a day Not-Taking Otezla 30 MG 1 tablet Orally Twice a day Active Ciclopirox 0.77 % 1 application Externally daily; Duration: 30 days 03/29/2025 Active Omeprazole 20 MG 1 capsule 30 minutes before morning meal Orally Once a day Active Erythromycin 2 % 1 application Externally Twice a day; Duration: 90 days prn Active Aspir-81 81 mg daily Active Clotrimazole-Betameth asone 1-0.05 % 1 application Externally Twice a day; Duration: 90 days Active Pravastatin Sodium 40 MG 1 tablet Orally Once a day Active Atorvastatin Calcium 80 MG 1 tablet Orally Once a day Not-Taking Lantus SoloStar 100 UNIT/ML as directed Subcutaneous 36 units in the morning Not-Taking Efinaconazole 10 % 1 application Externally Once a day; Duration: 30 days prn Active Humalog Pen slide scale Active Problems Problem Type SNOMED Code ICD Code Onset Dates Problem Status W/U Status Risk Notes Problem 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 (918091514) Type 1 diabetes mellitus with unspecified complications (E10.8) Active confirmed Problem Type 2 diabetes mellitus with other specified complication (E11.69) Active confirmed Problem Obesity (010729098) Obesity, unspecified (E66.9) Active confirmed Problem Pain co-occurrent and due to varicose veins of bilateral legs (18590529328757313 ) Varicose veins of bilateral lower extremities with pain (I83.813) Active confirmed Problem Polyneuropathy due to type 2 diabetes mellitus (590819935) Type 2 diabetes mellitus with diabetic polyneuropathy, without long-term current use of insulin (E11.42) Active confirmed Problem Plantar fascial fibromatosis (41087921) Plantar fasciitis, left (M72.2) Active confirmed Problem Peripheral venous insufficiency (31462955) Venous (peripheral) insufficiency (I87.2) Active confirmed Encounters Encounter Location Date Provider Diagnosis [facility] [address] [facility] [address] [place] [address] 03/29/2025 JUNIOR HARPER Tinea pedis of right foot B35.3 ; [...] neuropathy with the patient. Plan Of Treatment Pending Test Test Name Order Date Ultrasound : Doppler : Veins Leg Timbo. Next Appt Details Provider Name:JUNIOR HARPER, 03/30/2026 01:00:00 PM, [address], [address], Insurance Providers Payer Name Payer Address Payer Phone Subscriber Number Group Number Insured Name Patient Relationship to Insured Coverage Start Date Coverage End Date [facility] [address] [place] [phone] [id number] Brett Noble Self - patient is the insured Medical (General) History Medical History History ICD Code essential hypertension diabetes mellitus 2 uncontrolled without complications hyperlipidemia obesity Atwood's esophagus obstructive sleep apnea periodic limb movement disorder seizures PTSD emphysema Covid-19 Surgical History Surgery Date(Month/Year) colonoscopy hernia repair
--- OUTSIDE RECORDS SUMMARY | 2025-04-03 20:42 | XMS_ITS | Encounter Summary ---
Author Organization [facility] Address [address] [place] [address] Care Team Providers Care Air Breaker Operator Name Role Phone Claudy Collins MD Primary Care Provider [phone] Encounter Details Date Type Department Care Team (Late Contact Info) Description 03/30/2024 Nurse Triage Adult Medicine [address] [phone] Claudy Collins MD [address] [place] [address] Social History Tobacco Use Types Packs/Day Years Used Date Smoking Tobacco: Former Cigarettes 1 Q uit: 04/20/2019 Smokeless Tobacco: Never Alcohol [...] Care Team (Late st Contact Info) Description 04/04/2025 11:30 AM EST Office Visit Endocrinology [address] [phone] Shelli Oleary PA [address] [place] [address] 04/04/2025 12:30 PM EST Consult Bariatric Surgery - [place] [address] [facility] [address] [place] [phone] Naranjo-Guillen Kenzie, RD [address] [facility] [address] [place] [phone] 04/05/2025 2:00 PM EST Office Visit Adult Medicine [facility] [address] [place], [place] [phone] Kamron Chacko PA [address] [place], [place] 10/31/2025 2:20 PM EDT Office Visit Pulmonology - [place] [address] [facility] [address] [place] [phone] Kena Caballero, ANMOL [address] [place] [phone] documented as of this encounter Visit Diagnoses Not on filedocumented in this encounter Additional Health Concerns Assessment Noted Time PHQ-9 Depression Total Score: 0 02/29/20 24 2:14 PM EST documented as of this encounter Care Teams Air Breaker Operator Relationship Specialty Start Date End Date Claudy Collins MD [address] [place] [address] PCP - General Internal Medicine 12/27/24 documented as of this encounter
--- OUTSIDE RECORDS SUMMARY | 2025-04-03 20:42 | XMS_ITS | Clinical Summary ---
Author Organization Patient Business Ser [facility] Address [address] [place] [address] Care Team Providers Care Territory Account Executive Name Role Phone Claudy Collins MD Primary Care Provider [phone] Allergies Active Allergy Reactions Criticality Noted Date Comments Amoxicillin 05/31/2019 Amoxicillin-Pot Clavulanate Hives,Rash Medium 02/19/20 13 Augmentin Clavulanic Acid 05/31/2019 Doxycycline 06/10/2019 ? sjs Minocycline 06/10/2019 Rash, oral lesions ? sjs Medications apremilast (Otezla) 30 mg tablet Take 30 mg by mouth 2 times daily. 04/09/20 21 Active aspirin 81 mg EC tablet 1 tablet (81 mg total) 1 (one) time. 07/15/19 20 Active clotrimazole-b etamethasone (LOTRISONE) 1-0.05 % cream 03/24/20 23 Active glucose sensor,implant -dexamet device 1 Device by Does not apply route See Admin Instructions. Change sensor every 10 days 10/16/19 24 Active BLOOD[facility]CO[facility] 08/03/19 24 Active UNABLE TO FIND CPAP- Inhale into lungs nightly Active erythromycin with ethanoL (EMGEL) 2 % gel 03/24/20 23 Active venlafaxine XR (EFFEXOR-XR) 37.5 mg 24 hr capsule Take 2 capsules (75 mg total) by mouth 1 (one) time each day. 11/06/19 24 Active insulin lispro (HumaLOG KwikPen) 100 unit/mL injection pen INJECT UNDER THE SKIN THREE TIMES A DAY WITH MEALS PER SLIDING SCALE WHEN NOT USING INSULIN PUMP. IF BLOOD SUGAR IS 80-129: 4 UNITS, 130-179: 6 U, 180-229: 8 U, 230-279:10 U, 280-329:12 U, 330-379:14 U, 380-429: 16 U, SUGARS>400 OR <80 CALL PHYSICIAN 08/06/19 24 Active insulin glargine (Lantus Solostar U-100 Insulin) 100 unit/mL (3 mL) injection pen 40 UNITS UNDER THE SKIN DAILY, when not using insulin pump 07/07/19 24 Active UNABLE TO FIND Swish and spit 10 mL every 4 hours as needed for Pain. Please mix the following in equal parts: MAALOX REGULAR STRENGTH 225-200-25 MG/5ML OR SUSP- 30cc LIDOCAINE VISCOUS 2 % MT SOLN - 30cc BENADRYL 12.5 MG/5ML OR ELIX - 30cc 09/10/19 24 Active pen needle, diabetic (LITE TOUCH INSULIN PEN NEEDLES MISC) USE WITH INSULIN PEN 4 TIMES A DAY 07/07/19 24 Active pen needle, diabetic 32 gauge x 5/32 needle Use one daily with victoza. 07/07/19 24 Active diabetic supplies, miscellan. misc 1 Device by Does not apply route every 3 days. 04/24/19 23 Active infusion set for insulin pump infusion set 1 Device by Does not apply route daily. 04/24/19 23 Active diabetic supplies, miscellan. misc 1 Device by Does not apply route every 3 days. 04/24/19 23 Active glucose blood test strip Check glucose qid 11/12/19 22 Active Colcrys 0.6 mg tablet Take 1 tablet (0.6 mg total) by mouth 1 (one) time each day. 01/18/20 24 Active magnesium oxide 400 mg magnesium capsule Take 400 mg by mouth. Active albuterol HFA (PROAIR HFA ; PROVENTIL HFA ; VENTOLIN HFA) 90 mcg/actuation inhalerIndicat ions:Pulmonary emphysema, unspecified emphysema type Inhale 2 puffs by mouth every 6 (six) hours if needed for wheezing or shortness of breath (cough or chest tightness). 18 g 1 06/29/19 25 026 Active glucagon (Baqsimi) 3 mg/actuation nasal spray 1 Dose by Nasal route as needed for Other (hypoglycemia). 3 each 3 07/29/19 25 Active insulin lispro 100 unit/mL injection USE DAILY WITH INSULIN PUMP. PER CARBOHYDRATE RATIO 1:10. CORRECTION 1:30 AND [employer] 100. MAXIMUM DAILY DOSE OF 150 UNITS 90 mL 5 08/31/19 25 Active Dexcom G7 Sensor deviceIndicati ons:Type 1 diabetes mellitus with complication, with long-term current use of insulin ([facility] V24, [facility] V28) APPLY 1 SENSOR AND THEN CHANGE EVERY 10 DAYS 9 each 1 10/13/19 25 Active montelukast (SINGULAIR) 10 mg tabletIndicati ons:Pulmonary emphysema, unspecified emphysema type TAKE 1 TABLET BY MOUTH AT BEDTIME 90 each 3 11/04/19 25 Active tamsulosin (FLOMAX) 0.4 mg 24 hr capsule TAKE 1 CAPSULE BY MOUTH EVERY DAY 30 MINUTES AFTER THE SAME MEAL EACH DAY 90 capsule 1 11/30/19 25 Active omeprazole (PriLOSEC) [address] capsule TAKE 1 CAPSULE BY MOUTH ONCE A DAY 90 each 01/27/20 25 Active mometasone (NASONEX) 50 mcg/actuation nasal sprayIndicatio ns:Chronic rhinitis USE 2 SPRAYS IN EACH NOSTRIL TWO TIMES A DAY 34 g 1 03/09/20 25 Active cetirizine (ZyrTEC) 10 mg tablet TAKE 1 TABLET BY MOUTH DAILY 90 tablet 1 03/08/20 25 Active cetirizine (ZyrTEC) 10 mg tablet Take 1 tablet (10 mg total) by mouth 1 (one) time each day. Take 1 Tablet by mouth daily for 360 days. - Oral 025 Discontinued mometasone (NASONEX) 50 mcg/actuation nasal sprayIndicatio ns:Chronic rhinitis Administer 2 sprays into each nostril 2 (two) times a day. 17 g 5 03/07/20 24 025 Discontinued azithromycin (ZITHROMAX) 250 mg tabletIndicati ons:Obstructiv e emphysema ([facility] V24, [facility] V28),Productiv e cough Take 2 tablets (500 mg total) by mouth 1 (one) time each day for 1 day, THEN 1 tablet (250 mg total) 1 (one) time each day for 4 days. 6 each 03/06/20 25 025 Discontinued azithromycin (ZITHROMAX) 250 mg tabletIndicati ons:Obstructiv e emphysema (CMS/HCC V24, CMS/HCC V28),Productiv e cough Take 2 tablets (500 mg total) by mouth 1 (one) time each day for 1 day, THEN 1 tablet (250 mg total) 1 (one) time each day for 4 days. 6 each 03/06/20 25 025 Active Problems Problem Noted Date Diagnosed Date Chronic rhinitis 09/06/2024 Cataract 03/02/2023 Overview (01/25/2024): punctate opacities and Y-suture catarcts, OD>OS. Stable acuity per last exam notes. Monitor, RTC 1 year for REE. Sensorineural hearing loss, bilateral 03/02/2023 Severe obesity (BMI 35.0-39.9) with comorbidity 03/02/2023 Diabetes mellitus type 1, wi th complication, on terminal gauger insulin pump 09/01/2022 Behcet's disease 10/11/2021 Overview (01/25/2024): Follows with [facility] Rheum Nocturnal hypoxemia 07/09/2021 Overview (01/25/2024): 06/2021 [facility] Polysomnogram + for nocturnal hypoxemia and PLMD. AHI 3 - does not meet diagnostic criteria for sleep apnea. PLMD noted. PTSD (post-traumatic stress disorder) 12/16/2018 PLMD (periodic limb movement disorder) 9 SSBE (short-segment Atwood's esophagus) 018 Overview (01/25/2024): EGD and biopsy, 2013, Dr. Hodges, [facility]. Seizures 06/10/2017 Overview (01/25/2024): Onset 02/2017, assoc with pneumonia. Obstructive sleep apnea 07/09/2015 Overview (01/25/2024): Polysomnogram: [facility] Polysomnogram: Date 05/20/2015; Wt 235# SE 81%; SM 84%; REM 16%; RDI 7.6 (AHI 5.7), worse in REM (RDI 16.7 - AHI 15.7), Central apneas 2; Obstructive apneas 0; Mixed apneas 0; hypopneas 35; RERAs 12; average oxygen saturation 89% (lowest 83%); average ETCO2 41 torr (highest 52 torr) [facility] Polysomnogram treatment study. Date 07/01/2015 . SE 95 % SM 97 %; spent 23 % of the study in REM. At the optimal pressure of 9; RDI 0 (AHI 0), and, average oxygen saturation was 88%. For the entire study, PLMs ~33. [facility] Polysomnogram treatment study. Date 05/19/2018. SE 82 % SM 90 %; spent 19 % of the study in REM. On CPAP @ 12; RDI 0 (AHI 0), Central apneas 0; - - Obstructive apneas 0; Mixed apneas 0; hypopneas 0; RERAs 0; and, average oxygen saturation was 90%. For the entire study, PLMs ~20. PLMs 35. - Obstructive sleep apnea; mild overall; moderate REM AHI 16 by 2016 polysomnogram. - Pre-study ESS 7. 3/4 RLS symptoms. - CPAP 12 corrective. 03/06/2021 Home Sleep Study did not reveal sleep apnea. Did reveal nocturnal hypoxia. Onychomycosis 07/09/2015 Emphysema lung 04/01/2012 Overview (01/25/2024): Severe Essential hypertension, benign 01/01/2007 Hyperlipidemia 01/01/2007 Tobacco use disorder 01/01/2007 Encounters Date Type Department Care Team Description 04/03/2025 Telephone Adult Medicine [address] [phone] Claudy Collins MD 03/06/2025 4:00 PM EST Office Visit Adult Medicine [address] [phone] Bari Laurent PA Productive cough (Primary Dx); Obstructive emphysema (CMS/HCC V24, CMS/HCC V28); Gout, unspecified cause, unspecified chronicity, unspecified site 02/07/2025 2:15 PM EDT Office Visit Lung Screening Program - [place] [address] [facility] [address] [place] [phone] Marianna Back NP Lung nodule (Primary Dx) 02/01/2025 4:00 PM EDT Office Visit Endocrinology - [address] [phone] Shelli Oleary PA Diabetes mellitus type 1, with complication, on snf insulin pump (CMS/HCC V24, CMS/HCC V28) (Primary Dx) 02/01/2025 9:16 AM EDT - 02/01/2025 11:59 PM EDT Hospital Encounter [facility] CT Scan [address] [place] [phone] Lung nodule Discharge Disposition: Home or Self Care 02/01/2025 Telephone [facility] - [address] [phone] Shelli Oleary PA 02/01/2025 Results Follow-Up [facility] - [address] [phone] Shelli Oleary PA from Last 3 Months Immunizations Immunization Administration Dates Next Due Anthrax 01/24/2003,08/08/2002,07/15/2002 Hepatitis A-Hepatitis B Adul t (Twinrix) 18yo and older 05/28/2002 IPV Inactivated polio (Ipol) 6wks and older 05/28/2002 Influenza Quadravalent, 0.5m l (Fluzone High-dose) 65yo and older 02/11/2024 Influenza Quadravalent, MDCK , 0.5ml, preservative free (Flucelvax) 6mo and older 01/25/2020,02/25/2019 Influenza Quadravalent, MDCK , 0.5ml, with preservative (Flucelvax) 6mo and older 02/27/2017 Influenza trivalent, 0.5mL ( Fluzone High-dose) 65yo and older 01/22/2023,01/10/2023,01/01/2022,02/01 Influenza trivalent, with pr eservative (Fluzone; Afluria) 6mo and older 12/27/2021,01/18/2021,02/12/2016,03/26,04/03/2014,01/28/2013,03/20/2003 ,03/11/2002 Influenza, live, intranasal, trivalent (FluMist) 2yo to less than 50yo 01/25/2025 [employer] SARS-CoV-2 COVID -19, vector-nr, rS-Ad26, preservative free 07/03/2020 Meningococcal Polysaccharide 05/28/2002 Pfizer (age 5-11) Bivalent, COVID-19 02/11/2022 Pfizer SARS-CoV-2 COVID-19, mRNA, LNP-S, preservative free 02/11/2021 Pneumococcal Conjugate 01/25/2025 Pneumococcal conjugate 13 va lent (Prevnar 13, PCV13) 2mo and older 01/08/2022 Pneumococcal conjugate 20 va lent (Prevnar 20, PCV 20) 2mo and older 04/03/2023 Pneumococcal polysaccharide 23 valent (Pneumovax 23) 2yo and older 11/20/2014 Respiratory syncytial virus (RSV), unspecified 05/25/2023 SARS-COV-2 (COVID-19) Vaccin e, Unspecified 02/08/2024 Td Tetanus diptheria (Tdvax) 7yo and older 05/21/2002 Tdap Tetanus diptheria acell ular pertussis (Boostrix; Adacel) 7yo and older 01/25/2025,11/20/2014,05/28/2002 Typhoid VICPS (Typhim Vi) 2y o and older 05/28/2002 Zoster recombinant (Shingrix ) 19yo and older 07/15/2021,05/21/2021 Surgical History Surgery Date Site/Laterality Comments HERNIA REPAIR 1989's Right inguinal COLONOSCOPY 04/05/2007 negative UPPER GASTROINTESTINAL ENDOSCOPY 06/29/2013 [email or web address]: [place]. COLONOSCOPY 07/06/2017 7 mm tubular adenoma. OTHER SURGICAL HISTORY 1989' Right EXC HYDROCELE SPRMATIC CORD UNI SPX Medical History Medical History Date Comments Essential hypertension, benign 01/01/2007 Special screening for malign ant neoplasms, colon 04/05/2007 : Negative colonoscopy 04/05, no colon cancer screening needed for 10 years. Type 2 diabetes mellitus wit hout complication 04/30/2015 Chiari I malformation ([facility] V24, [facility] V28) Seizures ([facility] V24, [facility] V28) 06/10/2017 SSBE (short-segment Atwood' s esophagus) 07/06/2017 EGD and biopsy, 2014, Dr. Elaine casper, [facility]. Emphysema lung ([facility] V24, [facility] V28) 04/01/2012 Severe Hyperlipidemia 01/01/2007 Family History Medical History Relation Name Comments Diabetes Daughter Stroke Father DM, CAD, No Known Problems Mother Diabetes Sister 1 Relation Name Status Comments Brother Alive Daughter Alive Father Mother Tobacco use Sister 1 Alive Sister 2 Alive Social History Tobacco Use Types Packs/Day Years Used Date Smoking Tobacco: Former Cigarettes 1 43 1 976 - 2019 Smokeless Tobacco: Never Tobacco Cessation:Counseling Given: Not Answered Alcohol Use Standard Drinks/Week Comments Yes 0 (1 standard drink = 0.6 oz pur e alcohol) Housing Instability Answer Date Recorde d Are you worried that in the next 2 months you may not have stable housing? No 08/31/2024 Food Access & Nutrition Answer Date Rec orded Do you have access to a vari ety of food including fruits and vegetables? Yes 08/31/2024 Access to Healthcare Answer Date Record ed Within the last 3 months, katelyn bolaños many times did you visit the emergency department for your medical care? 0 08/31/2024 Health Literacy Answer Date Recorded How often do you need to hav e someone help you when you read instructions, pamphlets, or other written material from your doctor or pharmacy? Never 08/31/2024 Caregiver: How often do you need to have someone help you when you read instructions, pamphlets, or other written material from your doctor or pharmacy? Not on file 08/31/2024 Financial Risk Answer Date Recorded How hard is it for you to pa y for the very basics like food, housing, medical care, and air conditioning / heating? Not very hard 08/31/2024 Transportation Answer Date Recorded Has the lack of transportati on kept you from meetings, work, or from getting things needed for daily living? No Has the lack of transportati on kept you from medical appointments or from getting medications? No 08/31/2024 Social Isolation Answer Date Recorded How often do you feel lonely or isolated from th ose around you? Never 08/31/2024 Food Risk Answer Date Recorded Within the past 12 months we worried whether our food would run out before we got money to buy more. Never true 08/31/2024 Within the past 12 months th e food we bought just didn't last and we didn't have money to get more. Never true 08/31/2024 Dependent Care Answer Date Recorded Do you need help finding or paying for care for your loved ones. For example, child's nurse or elderly care for an older adult? No 08/31/2024 Education Answer Date Recorded Do you think completing more education or training, like finishing a GED, going to college, or learning a trade, would be helpful for you? No 08/31/2024 Employment and Income Answer Date Recor ded During the last four weeks, have you been actively looking for work? No 08/31/2024 Living Situation Answer Date Recorded What is your living situation? Unrecognized valu e 08/31/2024 Sex and Gender Information Value Date Recorded Sex Assigned at Not on file Legal Sex Male 12:41 PM EDT Gender Identity Not on file Sexual Orientation Not on file Last Filed Vital Signs Vital Sign Reading Time Taken Comments Blood Pressure 124/74 03/06/2025 4:07 PM EST Pulse 105 03/06/2025 4:07 PM EST Temperature 36.2 C (97.2 F) 03/06/2025 4:07 PM EST Respiratory Rate 16 02/07/2025 2:23 PM EDT Oxygen Saturation 95% 03/06/2025 4:07 PM EST Inhaled Oxygen Concentration - - Weight 127 kg (281 lb) 03/06/2025 4:07 PM EST Height 167.6 cm (5' 6 ) 03/06/2025 4:07 PM EST Body Mass Index 45.35 03/06/2025 4:07 PM EST Plan of Treatment Upcoming Encounters Date Type Department Care Team (Late st Contact Info) Description 04/04/2025 11:30 AM EST Office Visit Endocrinology - [place] [address] [place] [phone] Shelli Oleary PA [address] [place] [address] 04/04/2025 12:30 PM EST Consult Bariatric Surgery - [place] [address] [facility] [address] [place] [phone] Kenzie Perales, RD [address] [facility] [address] [place] [phone] 04/05/2025 2:00 PM EST Office Visit Adult Medicine [facility] [address] [place] [phone] Kamron Chacko PA [address] [place] [phone] 10/31/2025 2:20 PM EDT Office Visit Pulmonology - [place] [address] [facility] [address] [place] [phone] Kena Caballero, NEUROSURGICAL NURSE [address] [place] [phone] Health Maintenance Due Date Last Done Comments Diabetes: Annual Foot Exam 1966 Hepatitis B Vaccines (2 of 3 - Hep B Twinrix 3-dose series) 06/25/2002 05/28/2002 IPV Vaccines (2 of 3 - Adult catch-up series) 06/25/2002 05/28/2002 RSV Immunization Adult Patients (1 - Risk 50-74 years 1-dose series) 2006 05/25/2023 Falls Risk Assessment 2021 COVID-19 Vaccine ( season) 2024 02/08/2024, 12/29/2023, 02/11/2022, Additional history exists Influenza Vaccine (#1) 2025 , 02/11/2024, 12/29/2023, Additional history exists Diabetes: Annual Urine Albumin-Creatinine Ratio (uACR) 07/22/2025 07/22/2024, 04/06/2023 Diabetes: Annual GFR (Glomerular Filtration Rate) 07/22/2025 07/22/2024, 01/27/2024, 11/16/2023, Additional history exists Hypertension/CHF/CAD Annual BMP Blood Test 07/22/2025 07/22/2024, 01/27/2024, 11/16/2023, Additional history exists Diabetes: Blood Sugar Control Test (HGBA1C) 08/01/2025 01/31/2025, 10/31/2024, 07/22/2024, Additional history exists Social Influencers of Health Screening 08/31/2025 08/31/2024 Diabetes: Annual Retina Eye Exam 09/21/2025 09/21/2024, 10/05/2023 Lung Cancer Screening (Low Dose CT) 10/25/2025 10/25/2024 Colorectal Cancer Screening: Colonoscopy 10/15/2028 10/16/2023 Cholesterol Screening (Lipid Panel) 07/22/2029 07/22/2024, 01/27/2024, 11/16/2023, Additional history exists DTaP,Tdap,and Td Vaccines (5 - Td or Tdap) 01/25/2035 01/25/2025, 11/20/2014, 05/28/2002, Additional history exists Hepatitis A Vaccines Aged Out 05/28/2002 No long er eligible based on patient's age to complete this topic Meningococcal ACWY Vaccine Aged Out 05/28/2002 N o longer eligible based on patient's age to complete this topic Zoster Vaccines Completed 07/15/2021, 05/21/2021 Hepatitis C Screening Completed 09/22/2021 Abdominal Aortic Aneurysm (AAA) Screen Completed 04/11/2022, 04/11/2022 Pneumococcal Vaccine: 50+ Years Completed 04/03/2023, 01/08/2022, 11/20/2014 RSV Immunization Patients Under 20 months Aged Out 05/25/2023 No longer eligible based on patient's age to complete this topic Depression Screening Completed 08/31/2024 HIB Vaccines Aged Out No longer eligi ble based on patient's age to complete this topic HPV Vaccines Aged Out No longer eligi ble based on patient's age to complete this topic MMR Vaccines Aged Out No longer eligi ble based on patient's age to complete this topic Meningococcal B Vaccine Aged Out No l onger eligible based on patient's age to complete this topic Varicella Vaccines Aged Out No longer eligible based on patient's age to complete this topic Procedures Procedure Name Priority Date/Time Associated Diagnosis Comments CT CHEST WO CONTRAST (LUNG-RADS F/U) Routine 02/01/2025 9:24 AM EDT Lung nodule HEMOGLOBIN A1C Routine 01/31/2025 11:59 AM EDT Diabetes mellitus type 1, with complication, on terminal gauger insulin pump (CMS/HCC V24, CMS/HCC V28) CT LUNG SCREENING Routine 10/25/2024 3:4 1 PM EDT Encounter for screening for malignant neoplasm of respiratory organs Personal history of nicotine dependence MICROALBUMIN CREATININE URINE RATIO Routine 07/22/2024 11:56 AM EDT Diabetes mellitus type 1, with complication, on snf insulin pump (CMS/HCC V24, CMS/HCC V28) COMPREHENSIVE METABOLIC PANEL Routine 07/22/2024 11:56 AM EDT Encounter for long-term (current) use of medications LIPID PANEL WITH REFLEX TO DIRECT LDL Routine 07/22/2024 11:56 AM EDT Diabetes mellitus type 1, with complication, on snf insulin pump (CMS/HCC V24, CMS/HCC V28) COLONOSCOPY Routine 10/16/2023 DIABETES EYE EXAM Routine 10/05/2023 US ABDOMINAL AORTA REAL TIME SCREEN STUDY AAA Routine 04/11/2022 7:55 AM EST Personal history of nicotine dependence HEPATITIS C SCREENING Routine 09/22/2021 from Last 3 Months or Most Recently Relevant to Health Maintenance Results * CT Chest wo Contrast (Lung-RADS F/U) (02/01/2025 9:24 AM EDT) Anatomical Region Laterality Modality Body Computed Tomogra phy 02/03/2025 2:26 PM EDT Addenda Addendum by Mark Sheffield MD on 02/06/2025 12:09 PM EDT Lung Rads 2 -------- ADDENDUM -------- Dictated By: Mark Sheffield Dictated Date: 02/06/2025 12:09 ET Assigned Physician: Mark Sheffield Reviewed and Electronically Signed By: Mark Sheffield Signed Date: 02/06/2025 12:09 ET Workstation ID: [id number] Transcribed By: Self Edit Transcribed Date: 02/06/2025 12:09 ET Impressions 02/03/2025 2:30 PM EDT Resolved nodule along the right major fissure. Extensive emphysematous changes. Stable tiny nodules throughout. Return to annual screening. Slight increase in bibasilar opacities could represent atelectasis or infectious/inflammatory process could be considered. -------- FINAL REPORT -------- Dictated By: Mark Sheffield Dictated Date: 02/03/2025 14:26 ET Assigned Physician: Mark Sheffield Reviewed and Electronically Signed By: Mark Sheffield Signed Date: 02/03/2025 14:30 ET Workstation ID: [id number] Transcribed By: Self Edit Transcribed Date: 02/03/2025 14:26 ET Narrative 02/03/2025 2:30 PM EDT PROCEDURE: CT CHEST WITHOUT CONTRAST INDICATION: pulmonary nodule TECHNIQUE: Chest CT without contrast. Multi planar reformats were created and interpreted. The examination was performed utilizing dose reduction techniques.Total DLP 168 mGy/cm COMPARISON: No priors available. FINDINGS: LUNGS/PLEURA: Resolved nodule along the right major fissure. Extensive emphysematous changes. Stable tiny nodules throughout. No new concerning nodule present. Slight increase in bibasilar opacities could represent atelectasis or infectious/inflammatory process could be considered. MEDIASTINUM: Coronary artery calcifications. No adenopathy. CHEST WALL: No axillary lymphadenopathy or superficial hematoma. UPPER ABDOMEN:The visualized portions of the upper abdomen are unremarkable. BONES: No acute fracture. Scattered degenerative changes seen throughout the bones. Procedure Note Mark Sheffield MD - 02/03/2025 PROCEDURE: CT CHEST WITHOUT CONTRAST INDICATION: pulmonary nodule TECHNIQUE: Chest CT without contrast. Multi planar reformats were createdand interpreted. The examination was performed utilizing dose reductiontechniques.Total DLP 168 mGy/cm COMPARISON: No priors available. FINDINGS: LUNGS/PLEURA: Resolved nodule along the right major fissure. Extensiveemphysematous changes. Stable tiny nodules throughout. No new concerningnodule present. Slight increase in bibasilar opacities could representatelectasis or infectious/inflammatory process could be considered. MEDIASTINUM: Coronary artery calcifications. No adenopathy. CHEST WALL: No axillary lymphadenopathy or superficial hematoma. UPPER ABDOMEN:The visualized portions of the upper abdomen areunremarkable. BONES: No acute fracture. Scattered degenerative changes seen throughoutthe bones. IMPRESSION: Resolved nodule along the right major fissure. Extensive emphysematouschanges. Stable tiny nodules throughout. Return to annual screening. Slight increase in bibasilar opacities could represent atelectasis orinfectious/inflammatory process could be considered. -------- FINAL REPORT -------- Dictated By: Mark Sheffield Dictated Date: 02/03/2025 14:26 ET Assigned Physician: Mark Sheffield Reviewed and Electronically Signed By: Mark Sheffield Signed Date: 02/03/2025 14:30 ET Workstation ID: [id number] Transcribed By: Self Edit Transcribed Date: 02/03/2025 14:26 ET us Marianna Back NP IMG CT PROCEDURES Edited Re sult - Final * (ABNORMAL) Hemoglobin A1c (01/31/2025 11:59 AM EDT) Hemoglobin A1C 8.2(H) <6.5 % LAB CHEMISTRY METHOD 01/31/2025 9:59 PM EDT [facility] Mean Bld Glu Estim. 189 mg/dL LAB CHEMISTRY METHOD 01/31/2025 9:59 PM EDT [facility] Blood Venous blood specimen / Unknown Venipuncture / Unknown 01/31/2025 11:59 AM EDT 01/31/2025 11:59 AM EDT us Shelli MUÑOZ LAB BLOOD ORDERABLES Final Result [facility] [address] [place] [address], * CT Lung Screening (10/25/2024 3:41 PM EDT) Anatomical Region Laterality Modality Chest Computed Tomogra phy 10/26/2024 7:09 AM EDT Impressions 10/26/2024 7:26 AM EDT Somewhat irregular 1.2 x 0.5 cm pleural associated nodule involving the midportion of the right major fissure. This does not meet morphology criteria for Fissural lymph nodes and is slightly greater than 0.8 cm in mean diameter. Recommend short interval follow-up low-dose CT in 3 months Underlying emphysema. LUNG RADS: Lung-RADS 4A: SUSPICIOUS S Modifier (Significant or Potentially Significant Findings): None present No suspicious nonpulmonary findings. RECOMMENDATIONS: [address]; PET/CT may be considered if there is a greater than or equal to 8 mm solid nodule or solid component -------- FINAL REPORT -------- Dictated By: Diogo Carrillo Dictated Date: 10/26/2024 07:09 ET Assigned Physician: Diogo Carrillo Reviewed and Electronically Signed By: Diogo Carrillo Signed Date: 10/26/2024 07:26 ET Workstation ID: [id number] Transcribed By: Self Edit Transcribed Date: 10/26/2024 07:09 ET Narrative 10/26/2024 7:26 AM EDT EXAMINATION: CT CHEST WITHOUT CONTRAST LUNG CANCER SCREENING, LOW DOSE CLINICAL INFORMATION: Lung cancer screening. Former smoker. COMPARISON: None TECHNIQUE: Multidetector CT. Examination of the chest. Examination of the chest without IV contrast. Reformatting in the coronal and sagittal planes. Device: [employer] DLP: 183 mGy-cm CTDI: 4.89 Dose optimization was performed including the use of low-dose iterative reconstruction technique with automatic exposure control based on patient size. Type of contrast: None Volume of IV contrast: None Volume of contrast discarded: 0 mL FINDINGS: LUNG: No abnormality of the trachea or mainstem bronchi. LUNG NODULES: There is a slightly irregular pleural associated nodule associated with the midportion of the right major fissure. This does not have a lenticular or crescent-shaped contour. 10/25/24-1.2 x 0.5 cm (3/132; mean diameter 0.8 cm) There is an approximately 0.4 cm nodule in the azygos esophageal recess of the medial right lower lobe (3/159) OTHER PULMONARY: Severe underlying centrilobular C Mc. There are a few peripheral reticular opacities but no honeycomb formation. MEDIASTINUM: There are no enlarged mediastinal or hilar lymph nodes. No suspicious abnormalities of the esophagus. CARDIAC: The heart is not enlarged. No pericardial fluid or thickening There are moderate coronary calcifications. VASCULAR: There is no thoracic aortic aneurysm. The main pulmonary artery is normal caliber PLEURA: There is no pleural fluid or pneumothorax AXILLA/CHEST WALL: There are no enlarged axillary lymph nodes. No chest wall mass demonstrated. VISUALIZED UPPER ABDOMEN: No suspicious abnormality on limited assessment of the visualized upper abdomen. Approximately 1 cm low attenuating area adjacent to the fissure for the umbilical vein in the left lobe is nonspecific (4/116) MUSCULOSKELETAL: No suspicious focal bony lesion demonstrated. Procedure Note Diogo Carrillo MD - 10/26/2024 EXAMINATION: CT CHEST WITHOUT CONTRAST LUNG CANCER SCREENING, LOW DOSE CLINICAL INFORMATION: Lung cancer screening. Former smoker. COMPARISON: None TECHNIQUE: Multidetector CT. Examination of the chest. Examination of the chest without IV contrast. Reformatting in the coronal and sagittal planes. Device: [employer] [facility] [employer] DLP: 183 mGy-cm CTDI: 4.89 Dose optimization was performed including the use of low-dose iterativereconstruction technique with automatic exposure control based on patientsize. Type of contrast: None Volume of IV contrast: None Volume of contrast discarded: 0 mL FINDINGS: LUNG: No abnormality of the trachea or mainstem bronchi. LUNG NODULES: There is a slightly irregular pleural associated nodule associated withthe midportion of the right major fissure. This does not have a lenticularor crescent-shaped contour. 10/25/24-1.2 x 0.5 cm (3/132; mean diameter 0.8 cm) There is an approximately 0.4 cm nodule in the azygos esophageal recess ofthe medial right lower lobe (3/159) OTHER PULMONARY: Severe underlying centrilobular C Mc. There are a fewperipheral reticular opacities but no honeycomb formation. MEDIASTINUM: There are no enlarged mediastinal or hilar lymph nodes. Nosuspicious abnormalities of the esophagus. CARDIAC: The heart is not enlarged. No pericardial fluid or thickening There are moderate coronary calcifications. VASCULAR: There is no thoracic aortic aneurysm. The main pulmonary arteryis normal caliber PLEURA: There is no pleural fluid or pneumothorax AXILLA/CHEST WALL: There are no enlarged axillary lymph nodes. No chestwall mass demonstrated. VISUALIZED UPPER ABDOMEN: No suspicious abnormality on limited assessmentof the visualized upper abdomen. Approximately 1 cm low attenuating areaadjacent to the fissure for the umbilical vein in the left lobe isnonspecific (4/116) MUSCULOSKELETAL: No suspicious focal bony lesion demonstrated. IMPRESSION: Somewhat irregular 1.2 x 0.5 cm pleural associated nodule involving themidportion of the right major fissure. This does not meet morphology criteria for Fissural lymph nodes and is slightly greater than 0.8 cm in meandiameter. Recommend short interval follow-up low-dose CT in 3 months Underlying emphysema. LUNG RADS: Lung-RADS 4A: SUSPICIOUS S Modifier (Significant or Potentially Significant Findings): Nonepresent No suspicious nonpulmonary findings. RECOMMENDATIONS: [address]; PET/CT may be considered if there is a greater thanor equal to 8 mm solid nodule or solid component -------- FINAL REPORT -------- Dictated By: Diogo Carrillo Dictated Date: 10/26/2024 07:09 ET Assigned Physician: Diogo Carrillo Reviewed and Electronically Signed By: Diogo Carrillo Signed Date: 10/26/2024 07:26 ET Workstation ID: [id number] Transcribed By: Self Edit Transcribed Date: 10/26/2024 07:09 ET us Jose L Guerrero MD [facility] CT PROCEDURES Final Result * (ABNORMAL) Lipid panel with reflex to direct LDL (07/22/2024 11:56 AM EDT) Cholesterol 243(H) 0 - 200 mg/dL LAB CHEMISTRY METHOD 07/22/2024 3:45 PM EDT [facility] Triglycerides 108 0 - 150 mg/dL LAB CHEMISTRY METHOD 07/22/2024 3:45 PM EDT [facility] HDL 75 >=40 mg/dL LAB CHEMISTRY METHOD 07/22/2024 3:45 PM EDT [facility] LDL Calculated 146(H) 0 - 100 mg/dL LAB CHEMISTRY METHOD 07/22/2024 3:45 PM EDT [facility] VLDL Cholesterol Ananth 21.6 mg/dL LAB CHEMISTRY METHOD 07/22/2024 3:45 PM EDT [facility] Non HDL Chol. (LDL+VLDL) 168(H) <145 mg/dL LAB CHEMISTRY METHOD 07/22/2024 3:45 PM [facility] Chol/HDL Ratio 3.2 0.0 - 4.4 LAB CHEMISTRY METHOD 07/22/2024 3:45 PM EDT [facility] Blood Venous blood specimen / Unknown Venipuncture / Unknown 07/22/2024 11:56 AM EDT 07/22/2024 11:56 AM EDT us Shelli MUÑOZ LAB BLOOD ORDERABLES Final Result [facility] [address] [place] [address], * Microalbumin creatinine urine ratio (07/22/2024 11:56 AM EDT) Creatinine, Urine 133.0 mg/dL LAB CHEMISTRY METHOD 07/22/2024 3:57 PM [facility] Microalb, Ur 10.8 0.0 - 29.0 mg/L LAB CHEMISTRY METHOD 07/22/2024 3:57 PM [facility] Microalb/Creat Ratio 8 <30 mg/g creat LAB CHEMISTRY METHOD 07/22/2024 3:57 PM T [facility] Urine Urine specimen from urethra / Unknown Non-blood Collection / Unknown 07/22/2024 11:56 AM EDT 07/22/2024 11:56 AM EDT Shelli MUÑOZ LAB URINE ORDERABLES Final Result [facility] [address] [place] [address], * Comprehensive metabolic panel (07/22/2024 11:56 AM EDT) Sodium 141 133 - 145 mmol/L LAB CHEMISTRY METHOD 07/22/2024 3:45 PM [facility] Potassium 4.6 3.5 - 5.5 mmol/L LAB CHEMISTRY METHOD 07/22/2024 3:45 PM [facility] Chloride 106 96 - 110 mmol/L LAB CHEMISTRY METHOD 07/22/2024 3:45 PM [facility] CO2 30 21 - 32 mmol/L LAB CHEMISTRY METHOD 07/22/2024 3:45 PM [facility] Anion Gap 5 3 - 11 LAB CHEMISTRY METHOD 07/22/2024 3:45 PM [facility] Glucose 70 70 - 100 mg/dL LAB CHEMISTRY METHOD 07/22/2024 3:45 PM [facility] BUN 18 5 - 25 mg/dL LAB CHEMISTRY METHOD 07/22/2024 3:45 PM [facility] Creatinine 0.86 0.70 - 1.30 mg/dL LAB CHEMISTRY METHOD 07/22/2024 3:45 PM [facility] eGFR 94 >=60 mL/min/1. 73m2 LAB CHEMISTRY METHOD 07/22/2024 3:45 PM [facility] Comment:Calculation based on the Chronic Kidney Disease Epidemiology Collaboration (CKD-EPI) equation refit without adjustment for race. BUN/Creatinine Ratio 20.9 LAB CHEMISTRY METHOD 07/22/2024 3:45 PM T [facility] Calcium 9.2 8.5 - 10.5 mg/dL LAB CHEMISTRY METHOD 07/22/2024 3:45 PM [facility] AST (SGOT) 11 10 - 42 unit/L LAB CHEMISTRY METHOD 07/22/2024 3:45 PM [facility] ALT (SGPT) 22 10 - 60 unit/L LAB CHEMISTRY METHOD 07/22/2024 3:45 PM T [facility] Alkaline Phosphatase 115 42 - 121 unit/L LAB CHEMISTRY METHOD 07/22/2024 3:45 PM [facility] Total Protein 6.6 6.0 - 8.0 g/dL LAB CHEMISTRY METHOD 07/22/2024 3:45 PM [facility] Albumin 3.5 3.2 - 5.0 g/dL LAB CHEMISTRY METHOD 07/22/2024 3:45 PM [facility] Total Bilirubin 0.4 0.0 - 1.4 mg/dL LAB CHEMISTRY METHOD 07/22/2024 3:45 PM [facility] Blood Venous blood specimen / Unknown Venipuncture / Unknown 07/22/2024 11:56 AM EDT 07/22/2024 11:56 AM EDT Claudy Collins MD LAB BLOOD ORDERABLES Final Resu lt [facility] [address] [place] [address], * Colonoscopy (10/16/2023) [facility] Colonoscopy no interpretation , abstracted Anatomical Region Laterality Modality Other Historical Provider HEALTH MAINTENANCE Final Result * Diabetes Eye Exam (10/05/2023) [facility] Diabetes: Annual Retina Eye Exam abstracted Historical Provider HEALTH MAINTENANCE Final Result * US ABDOMINAL AORTA REAL TIME SCREEN STUDY AAA (04/11/2022 7:55 AM EST) Anatomical Region Laterality Modality Ultrasound 04/02/2022 9:16 AM EST Narrative 04/11/2022 8:37 AM EST EXAM: Abdominal aorta ultrasound, AAA screening HISTORY: AAA screening. History of prior tobacco use. COMPARISON: None FINDINGS: No evidence of an abdominal aortic aneurysm. Proximal aorta measures 2.5 cm in maximal diameter. Mid aorta measures 1.9 cm. Distal aorta measures 1.4 cm. Proximal right common iliac artery measures 0.9 cm. Proximal left common iliac artery measures 1.1 cm. IMPRESSION: IMPRESSION: No evidence of an abdominal aortic aneurysm. POS - [id number] Procedure Note Bree Santoro MD - 05/26/2023 EXAM: Abdominal aorta ultrasound, AAA screening HISTORY: AAA screening. History of prior tobacco use. COMPARISON: None FINDINGS: No evidence of an abdominal aortic aneurysm. Proximal aorta measures 2.5cm in maximal diameter. Mid aorta measures 1.9 cm. Distal aorta measures 1.4 cm.Proximal right common iliac artery measures 0.9 cm. Proximal left common iliac artery measures1.1 cm. IMPRESSION: IMPRESSION: No evidence of an abdominal aortic aneurysm. POS - [id number] Cecile CHOPRA US PROCEDURES Final Result * Hepatitis C Screening (09/22/2021) Hepatitis C Screening abstracted Historical Provider HEALTH MAINTENANCE Final Result from Last 3 Months or Most Recently Relevant to Health Maintenance Insurance [employer] Care Teams Territory Account Executive Relationship Specialty Start Date End Date Claudy Collins MD [address] [place] [phone] PCP - General Internal Medicine 12/27/24
--- OUTSIDE RECORDS SUMMARY | 2025-04-03 20:42 | XMS_ITS | Encounter Summary ---
Author Organization [facility] Address [address] [place] [address] Care Team Providers Care Skein Inspector Name Role Phone Claudy Collins MD Primary Care Provider Encounter Details Date Type Department Care Team ([facility] st Contact Info) Description 04/03/2025 Telephone Adult Medicine [facility] [address] [place] [address] Claudy Collins MD [address] [place] [address] Social History Tobacco Use Types Packs/Day Years Used Date Smoking Tobacco: Former Cigarettes 1 43 1 976 - 2019 Smokeless Tobacco: Never Alcohol Use Standard Drinks/Week [...] Record ed Within the last 3 months, ho w many times did you visit the emergency [...] care for your loved ones. For example, child nurse or elderly care for an older [...] 11:30 AM EST Office Visit Endocrinology - [address] [phone] Shelli Oleary PA [address] [place] [address] 04/04/2025 12:30 PM EST Consult Bariatric Surgery - [place] 175 [facility] [address] [place] [phone] Diaz Kenzie, RD 175 [facility] 120 [place] [phone] 04/05/2025 2:00 PM EST Office Visit Adult Medicine [facility] [address] [place], [place] [phone] Kamron Chacko PA [address] [place], [place] 10/31/2025 2:20 PM EDT Office Visit Pulmonology - [place] 175 [facility] [address] [place] [phone] Kena Caballero, ANMOL [address] [place] [phone] documented as of this encounter Visit Diagnoses Not on filedocumented in this encounter Additional Health Concerns Assessment Noted Time PHQ-9 Depression Total Score: 0 09/01/19 5:24 PM EDT documented as of this encounter Care Teams Skein Inspector Relationship Specialty Start Date End Date Claudy Collins MD [address] [place] [address] PCP - General Internal Medicine 12/27/24 documented as of this encounter
--- OUTSIDE RECORDS SUMMARY | 2025-04-03 20:42 | XMS_ITS | Encounter Summary ---
Author Organization [facility] Address [address] [place] [address] Care Team Providers Care Production Reproduction Manager Name Role Phone Claudy Collins MD Primary Care Provider [phone] Encounter Details Date Type Department Care Team ([facility] Contact Info) Description 02/01/2025 Results Follow-Up [place] [address] [place] [phone] Shelli Oleary PA [address] [place] [address] Social History Tobacco Use Types Packs/Day Years [...] for your loved ones. For example, child support investigator or elderly care for an older adult? [...] 11:30 AM EST Office Visit Endocrinology - [address] [phone] Shelli Oleary PA [address] [place] [address] 04/04/2025 12:30 PM EST Consult Bariatric Surgery - [place] 175 [facility] [address] [place] [phone] AdaGuillen, Kenzie, RD 175 [facility] 120 [place] [phone] 04/05/2025 2:00 PM EST Office Visit Adult Medicine [facility] [address] [place], [place] [phone] Kamron Chacko PA [address] [place], [place] 10/31/2025 2:20 PM EDT Office Visit Pulmonology - [place] 175 [facility] [address] [place] [phone] Kena Caballero, ANMOL [address] [place] [phone] documented as of this encounter Visit Diagnoses Not on filedocumented in this encounter Additional Health Concerns Assessment Noted Time PHQ-9 Depression Total Score: 0 09/01/19 5:24 PM EDT documented as of this encounter Care Teams Production Reproduction Manager Relationship Specialty Start Date End Date Claudy Collins MD [address] [place] [address] PCP - General Internal Medicine 12/27/24 documented as of this encounter
== END 2025-04-03 14:42 | disposition home or self-care (01) ==
PROVIDERS: PCP Internal Medicine; Visit Provider Psychiatry & Neurology Neurology
DX: R56.9 Unspecified convulsions (principal); G47.33 Obstructive sleep apnea (adult) (pediatric); G25.81 Restless legs syndrome; R25.1 Tremor, unspecified
CPT/HCPCS: 99214